=== PATIENT | male | born 1960 | race Caucasian/White ===

== ENCOUNTER 2018-10-11 02:51 | Emergency (ER) | payer MEDICAID ==
[~2018-10-11] VITALS: Ht 177.8 cm; Wt 60.3 kg
[~2018-10-11 02:51] MED LIST: ASPI-1264 PO; CYCL-1 PO; HYDR-4353 PO; IBUP-24 PO
[2018-10-11] MEDS ORDERED: fentaNYL/PF 50MCG/1 ML 2ML syringe IV ONE (03:20)
[2018-10-11] MEDS ORDERED: propofol 10mg/ml 20ml vial IV ONE (03:30)
[2018-10-11] MEDS ORDERED: HYDR-4383 PO (04:20)
[2018-10-11 04:30] VITALS: BP 123/82
== END 2018-10-11 05:06 | disposition home or self-care (01) ==
LOC: ER 02:52
DX: S43.004A Unspecified dislocation of right shoulder joint, initial encounter (principal); Z88.8 Allergy status to other drugs, medicaments and biological substances; Z79.82 Long term (current) use of aspirin; W22.8XXA Striking against or struck by other objects, initial encounter; Y93.89 Activity, other specified; Y92.89 Other specified places as the place of occurrence of the external cause; Y99.8 Other external cause status
CPT/HCPCS: 23650; 73020; 73030; 94760; 99152; 99153; 99285; J2704; J3010; 99284